=== PATIENT | male | born 1955 | race Two or more races ===

== ENCOUNTER 2020-07-06 14:12 | Emergency (ER) | payer OTHER ==
[~2020-07-06] VITALS: Ht 172.7 cm; Wt 71.0 kg
--- NOTE | 2020-07-06 14:39 | NUR ---
PT AMBULATORY TO ROOM, PT CHANGED INTO GOWN. MONITORS IN PLACE. SEIZURE PRECAUTIONS IN PLACE. CALL LIGHT WITHIN REACH
--- NOTE | 2020-07-06 15:22 | NUR ---
PT SITTING CALMLY ON GURNEY WATCHING TV & ON PHONE, NADN/VSS. CALL LIGHT WITHIN REACH. NO NEEDS AT THIS TIME
--- NOTE | 2020-07-06 16:08 | NUR ---
xray at bs
[2020-07-06 16:11] LABS: BASOPHILS % (AUTO) 1 % (0-1); EOSINOPHILS % (AUTO) 0 % (1-7); LYMPHOCYTES % (AUTO) 11 % (22-44); MEAN CORPUSCULAR HEMOGLOBIN 31.8 pg (27.5-34.5); MEAN CORPUSCULAR HGB CONC 33.6 g/dL (33.2-36.2); MEAN PLATELET VOLUME 6.3 fL (7.4-10.4); MONOCYTES % (AUTO) 6 % (2-9); NEUTROPHILS % (AUTO) 83 % (42-75); PLATELET COUNT 281 x10^3/uL (130-400); RED BLOOD COUNT 4.89 x10^6/uL (4.38-5.82); RED CELL DISTRIBUTION WIDTH 13.8 % (9.4-14.8)
[2020-07-06 16:12] LABS: MD NO
[2020-07-06 16:20] LABS: ALBUMIN 3.9 g/dL (3.4-5.0); ANION GAP 4 mmol/L (5-15); CHLORIDE 105 mmol/L (98-107); CREATININE 1.02 mg/dL (0.7-1.3)
--- NOTE | 2020-07-06 16:23 | NUR ---
PT AMBULATORY TO BR WITH UPRIGHT STEADY GAIT. BACK TO ROOM, CONNECTED TO MONITORS. PT SITTING ON GURNEY WATCHING TV & ON HIS PHONE. NADN/VSS. CALL LIGHT WITHIN REACH
--- NOTE | 2020-07-06 17:13 | NUR ---
PT TO CT
--- NOTE | 2020-07-06 17:25 | NUR ---
PT BACK FROM CT, SITTING ON GURNEY CALMLY. VSS/NADN. CALL LIGHT WITHIN REACH
[2020-07-06 17:27] VITALS: BP 188/112
[2020-07-06 18:06] LABS: AMPHETAMINE SCREEN, URINE Negative (Negative); BARBITURATE SCREEN, URINE Negative (Negative); BENZODIAZEPINE SCREEN, URINE Negative (Negative); CANNABINOID SCREEN, URINE Negative (Negative); COCAINE SCREEN, URINE Negative (Negative); METHADONE SCREEN, URINE Negative (Negative); OPIATE SCREEN, URINE Negative (Negative)
== END 2020-07-06 18:03 | disposition home or self-care (01) ==
LOC: ED 17:30
DX: R41.0 Disorientation, unspecified (principal); R10.9 Unspecified abdominal pain; R56.9 Unspecified convulsions; R94.31 Abnormal electrocardiogram [ECG] [EKG]; I10 Essential (primary) hypertension; F17.210 Nicotine dependence, cigarettes, uncomplicated
CPT/HCPCS: 36415; 70450; 71045; 80048; 80307; 82040; 85025; 93005; 99285; 99406